=== PATIENT | male | born 1965 | race Caucasian/White ===

== ENCOUNTER 2016-10-22 13:25 | Emergency (ER) | payer BC ==
[2016-10-22 14:50] VITALS: BP 163/68
[2016-10-22] MEDS ORDERED: Albuterol 2.5 MG/3 ML NEB.SOL* (0.083%) INH ONE (15:39)
[2016-10-22] MEDS ORDERED: Ibuprofen TAB* 600 MG PO ONE (15:39)
--- NOTE | 2016-10-22 15:43 | UC ---
Respiratory Complaint HPI - HPI Summary HPI Summary: cough, chest tightness, fever, bodyaches and chills, felt very nauseated yesterdeay. did not have a flu shot. works on a farm. - History of Current Complaint Chief Complaint: UCRespiratory Stated Complaint: SORE THROAT Time Seen by Provider: 10/22/16 15:32 Hx Obtained From: Patient Onset/Duration: Sudden Onset, Lasting Days Timing: Constant Severity Initially: Moderate Severity Currently: Severe Pain Intensity: 8 Pain Scale Used: 0-10 Numeric Character: Cough: Nonproductive Aggravating Factors: Exertion, Deep Breaths, Recumbent Position Alleviating Factors: Nothing Associated Signs And Symptoms: Positive: Dyspnea, Fever, Chills, Wheezing, URI, Nasal Congestion - Risk Factors Pulmonary Embolism Risk Factors: Negative Cardiac Risk Factors: Negative Pseudomonas Risk Factors: Negative - Allergies/Home Medications Allergies/Adverse Reactions: Allergies Allergy/AdvReac Type Severity Reaction Status Date / Time Penicillins Allergy Hives Verified 10/22/16 14:49 Home Medications: Home Medications Tadalafil [Cialis] 10 mg PO SEE INSTRUCTIONS 10/22/16 [History Confirmed ] PMH/Surg Hx/FS Hx/Imm Hx Previously Healthy: Yes Endocrine History Of: Denies: Diabetes Cardiovascular History Of: Denies: Hypertension, Pacemaker/ICD GI/ History Of: Denies: Renal Disease - Surgical History Surgical History: Yes Surgery Procedure, Year, and Place: [facility] - Family History Known Family History: Positive: Cardiac Disease - Social History Alcohol Use: None Substance Use Type: None Smoking Status (MU): Never Smoked Tobacco Review of Systems Constitutional: Fever, Chills, Fatigue Skin: Negative Eyes: Eye Redness ENT: Sore Throat, Nasal Discharge Respiratory: Shortness Of Breath, Cough Cardiovascular: Negative Gastrointestinal: Other - nausea Genitourinary: Negative Motor: Negative Neurovascular: Negative Musculoskeletal: Myalgia Neurological: Headache Psychological: Negative All Other Systems Reviewed And Are Negative: Yes Physical Exam Triage Information Reviewed: Yes Appearance: Well-Nourished, Ill-Appearing, Pain Distress Vital Signs: Initial Vital Signs Temp 101.6 F 10/22/16 14:46 Pulse 84 10/22/16 14:46 Resp 24 10/22/16 14:46 BP 163/68 10/22/16 14:46 Pulse Ox 98 10/22/16 14:46 Vital Signs Reviewed: Yes Eye Exam: Normal Eyes: Positive: Conjunctiva Inflamed ENT: Positive: Pharyngeal erythema, Nasal congestion, Nasal drainage, TM red, Muffled/hoarse voice Dental Exam: Normal Neck exam: Normal Neck: Positive: Supple, Nontender, Enlarged Nodes @ - tonsillar Respiratory Exam: Normal Respiratory: Positive: No respiratory distress, No accessory muscle use, Rhonchi , Wheezing, Inspiration, Other: - chest is tender on inspriation, RR 24 Cardiovascular Exam: Normal Cardiovascular: Positive: No Murmur, Pulses Normal, Tachycardia Abdominal Exam: Normal Abdomen Description: Positive: Nontender, No Organomegaly, Soft Bowel Sounds: Positive: Present Musculoskeletal Exam: Normal Musculoskeletal: Positive: Strength Intact, ROM Intact, No Edema Neurological Exam: Normal Neurological: Positive: Alert, Muscle Tone Normal Psychological Exam: Normal Skin Exam: Normal UC Diagnostic Evaluation - Laboratory O2 Sat by Pulse Oximetry: 98 Respiratory Course/Dx - Course Course Of Treatment: hc obtained, exam performed, medication administered for fever and wheezing, with improvement in wheezing and respiration, lung sounds still diminished and deep breaths bring on cough. chest xray ordered, neg for pnuemonia. treated for bronchitis - Differential Dx/Diagnosis Differential Diagnosis/HQI/PQRI: Aspiration, Asthma, Bronchitis, Exacerbation Of COPD, Influenza, Laryngitis, SARS, Sinusitis Provider Diagnoses: bronchitis. fever Discharge - Discharge Plan Condition: Stable Disposition: HOME Prescriptions: Albuterol HFA INHALER* [Ventolin HFA Inhaler*] 2 puff INH Q4H PRN #1 mdi PRN Reason: Cough predniSONE TAB* [Deltasone TAB*] 40 mg PO DAILY #10 tab Patient Education Materials: Acute Bronchitis (ED) Additional Instructions: take the medications as prescribed. 1. johan water gargles, vicks, coconut oil, for relief of symptoms. 2. follow up with any owrsening symptoms.
--- NOTE | 2016-10-22 16:29 | RAD ---
INDICATION: Cough and fever COMPARISON: None TECHNIQUE: PA and lateral views of the chest were obtained. FINDINGS: The heart and mediastinum are normal in size and contour. The lungs are grossly clear. There is no evidence of large pleural effusion. Visualized bones are normal for the patient's age. There is no radiographic evidence of free air beneath the diaphragm IMPRESSION: No radiographic evidence of acute cardiopulmonary disease.
== END 2016-10-22 17:06 | disposition home or self-care (01) ==
LOC: UCCORT 13:25
DX: J40 Bronchitis, not specified as acute or chronic (principal)
CPT/HCPCS: 71020; 87502; 99212; A9270-GY; G0463

== ENCOUNTER 2017-09-28 13:05 | Emergency (ER) | payer BC ==
--- NOTE | 2017-09-28 14:51 | UC ---
Back Pain HPI - HPI Summary HPI Summary: 51 year old with back pain . [place] [address] [place] [address]. Fell right onto the tail bone and did not hit head. Had a zing down the legs afterwards for a moment and no longer there. Took motrin 800 mg and feels pain 4/10 at this time. No weakness. No drop foot. No incontinence. No more zing at this time. - History of Current Complaint Stated Complaint: SP FALL-BACK PAIN Time Seen by Provider: 09/28/17 14:49 Hx Obtained From: Patient Onset/Duration: Sudden Onset Timing: Constant Severity Initially: Moderate Pain Scale Used: 0-10 Numeric - 4 Character: Spasmodic, Stiffness Aggravating Factor(s): Movement, Lifting Alleviating Factor(s): Rest - Allergies/Home Medications Allergies/Adverse Reactions: Allergies Allergy/AdvReac Type Severity Reaction Status Date / Time Penicillins Allergy Hives Verified 09/28/17 15:08 Home Medications: Home Medications Bupropion HCl [Forfivo Xl] 450 mg PO DAILY 09/28/17 [History Confirmed 09/28/17] Cholecalciferol [Vitamin D3] 400 unit PO DAILY 09/28/17 [History Confirmed 09/28] Lamotrigine 200 mg PO DAILY 09/28/17 [History Confirmed 09/28/17] Melatonin 5 mg PO DAILY 09/28/17 [History Confirmed 09/28/17] PMH/Surg Hx/FS Hx/Imm Hx Previously Healthy: Yes - Surgical History Surgical History: Yes Surgery Procedure, Year, and Place: [facility] - Family History Known Family History: Positive: Cardiac Disease - Social History Occupation: Employed Full-time - Farm Alcohol Use: None Substance Use Type: None Smoking Status (MU): Never Smoked Tobacco Review of Systems Musculoskeletal: Arthralgia, Decreased ROM Neurological: Paresthesia - for a few minutes after fall Is Patient Immunocompromised?: No All Other Systems Reviewed And Are Negative: Yes Physical Exam Triage Information Reviewed: Yes Appearance: Well-Appearing, Well-Nourished, Pain Distress - mild Vital Signs Reviewed: Yes Eye Exam: Normal ENT Exam: Normal Neck: Positive: 1 Respiratory Exam: Normal Cardiovascular Exam: Normal Musculoskeletal Exam: Normal Musculoskeletal: Positive: ROM Limited @ - lumbar paraspinal tenderness diffusely and b/l PSIS. Neg SLR. Sterngth 5/5 and sensation intact. Gait antalgic mildly Neurological Exam: Normal Psychological Exam: Normal Skin Exam: Normal Diagnostics - Laboratory Diagnostic Studies Completed/Ordered: IMPRESSION: 1. SPONDYLOLYSIS WITH SPONDYLOLISTHESIS AT L4-L5. 2. DEGENERATIVE DISC DISEASE AND OSTEOARTHRITIS MOST MASS AT L3-L4, L4-L5, AND L5-S1 Back Pain Course/Dx - Course Course Of Treatment: Refer to Ortho at this time if Sx not improved. Discussed red flags and he has none of those. Advised no twisting or lifting > 5 lb for 48 hours at least - Differential Dx/Diagnosis Differential Diagnosis/HQI/PQRI: Fracture, Herniated Disc, Strain, Sprain Provider Diagnoses: Lombar spine pain Discharge - Discharge Plan Condition: Good Disposition: HOME Prescriptions: Tizanidine HCl 2 mg PO DAILY PRN #10 cap PRN Reason: Spasms Patient Education Materials: Low Back Strain (ED) Referrals: Viraj Brown MD [Medical Doctor] - 4 Days (Ortho referral if needed )
[2017-09-28 15:08] VITALS: BP 145/66
--- NOTE | 2017-09-28 15:44 | RAD ---
HISTORY: Pain status post fall COMPARISONS: None VIEWS: 5 , Frontal, lateral, coned-down lateral sacral, and bilateral oblique views of the lumbar spine. FINDINGS: ALIGNMENT: There is grade 2 anterolisthesis of L4 on L5. VERTEBRAL BODIES: There are bilateral pars defects at L4. There is anterolateral marginal osteophyte formation at L4-L5. JOINTS: There is facet hypertrophic change at L3-L4, L4-L5 and L5-S1 INTERVERTEBRAL DISCS: There is mild diffuse loss of intervertebral disc height. SOFT TISSUE: Unremarkable. OTHER: The pelvis is unremarkable. The lung bases are clear. IMPRESSION: 1. SPONDYLOLYSIS WITH SPONDYLOLISTHESIS AT L4-L5. 2. DEGENERATIVE DISC DISEASE AND OSTEOARTHRITIS MOST MASS AT L3-L4, L4-L5, AND L5-S1
== END 2017-09-28 16:03 | disposition home or self-care (01) ==
LOC: UCCORT 13:05
DX: M54.5 Low back pain (principal); M47.817 Spondylosis without myelopathy or radiculopathy, lumbosacral region; M51.37 Other intervertebral disc degeneration, lumbosacral region; Z88.0 Allergy status to penicillin
CPT/HCPCS: 72110; 99212; G0463